=== PATIENT | male | born 1985 | race Caucasian/White ===

== ENCOUNTER 2019-04-11 10:17 | Emergency (ER) | payer OTHER ==
[~2019-04-11] VITALS: Ht 170.1 cm; Wt 79.4 kg
[2019-04-11] MEDS ORDERED: ANTIBIOTIC28.4 GM T (10:57)
[2019-04-11] MEDS ORDERED: CEPHALEXIN500 M1 PO (10:57)
== END 2019-04-11 11:45 | disposition home or self-care (01) ==
LOC: ED 10:17
DX: S61.211A Laceration without foreign body of left index finger without damage to nail, initial encounter (principal); Z23 Encounter for immunization; W26.8XXA Contact with other sharp object(s), not elsewhere classified, initial encounter; Y93.89 Activity, other specified; Y92.89 Other specified places as the place of occurrence of the external cause; Y99.8 Other external cause status